=== PATIENT | female | born 1975 | race American Indian/Alaskan Native ===

== ENCOUNTER 2020-12-18 08:31 | Emergency (ER) | payer SELFPAY ==
[2020-12-18 08:43] VITALS: BP 178/122
[2020-12-18] MEDS ORDERED: DOCUSATE SODIUM 100 MG/10 ML ORAL LIQD PO ONE (09:09)
--- NOTE | 2020-12-18 09:09 | Emergency Department Report ---
ED ENT HPI - General Chief complaint: Earache Stated complaint: BUG IN LT EAR Time Seen by Provider: 12/18/20 08:51 Source: patient Mode of arrival: Ambulatory Limitations: No Limitations - History of Present Illness Initial comments: Patient is a 45-year-old -[place] female that comes to the emergency room after a bug flew in her left ear. She thinks it is a mtz. She can feel a fluttering. This started this morning. MD complaint: ear pain -: Sudden Location: L ear Severity: mild Quality: other (Fluttering) Improves with: none Worsens with: none - Related Data Allergies Allergy/AdvReac Type Severity Reaction Status Date / Time No Known Allergies Allergy Unverified 12/18/20 08:41 ED Dental HPI - General Chief complaint: Earache Stated complaint: BUG IN LT EAR Time Seen by Provider: 12/18/20 08:51 Source: patient Mode of arrival: Ambulatory Limitations: No Limitations - Related Data Allergies Allergy/AdvReac Type Severity Reaction Status Date / Time No Known Allergies Allergy Unverified 12/18/20 08:41 ED Review of Systems ROS: Stated complaint: BUG IN LT EAR Other details as noted in HPI Comment: All other systems reviewed and negative ED Past Medical Hx - Past Medical History Previous Medical History?: Yes Hx Hypertension: Yes Hx Asthma: Yes - Surgical History Past Surgical History?: Yes Additional Surgical History: tubal PG - Family History Family history: no significant - Social History Smoking Status: Never Smoker Substance Use Type: None ED Physical Exam - General Limitations: No Limitations General appearance: alert, in no apparent distress - Head Head exam: Present: atraumatic, normocephalic - Eye Eye exam: Present: normal appearance - ENT ENT exam: Present: mucous membranes moist - Expanded ENT Exam Expanded TM/Canal exam: Foreign Body: Left TM - Neck Neck exam: Present: normal inspection - Respiratory Respiratory exam: Present: normal lung sounds bilaterally. Absent: respiratory distress - Cardiovascular Cardiovascular Exam: Present: regular rate, normal rhythm. Absent: systolic murmur, diastolic murmur, rubs, gallop - GI/Abdominal GI/Abdominal exam: Present: soft, normal bowel sounds - Extremities Exam Extremities exam: Present: normal inspection - Back Exam Back exam: Present: normal inspection - Neurological Exam Neurological exam: Present: alert, oriented X3 - Psychiatric Psychiatric exam: Present: normal affect, normal mood - Skin Skin exam: Present: warm, dry, intact, normal color. Absent: rash ED Course Vital Signs 12/18/20 08:42 Temperature 99.2 F Pulse Rate 98 H Respiratory 20 Rate Blood Pressure 178/122 [Right] O2 Sat by Pulse 100 Oximetry ED Medical Decision Making - Medical Decision Making ear irrigated to remove fb. Colace used to smother the mtz for removal . On reexam fb is no longer present. pt ambulatory and in nad on d/c. Pt to dc home with dc plan of care. Pt verbalizes understanding of discharge plan of care Vital Signs 12/18/20 08:42 Temperature 99.2 F Pulse Rate 98 H Respiratory 20 Rate Blood Pressure 178/122 [Right] O2 Sat by Pulse 100 Oximetry - Differential Diagnosis fb left ear Critical care attestation.: If time is entered above; I have spent that time in minutes in the direct care of this critically ill patient, excluding procedure time. ED Disposition Clinical Impression: Foreign body in ear Disposition: DC-01 TO HOME OR SELFCARE Is pt being admited?: No Does the pt Need Aspirin: No Condition: Stable Instructions: Ear Foreign Body, [id number] Additional Instructions: EAR MAY BE SORE TODAY MOTRIN OR TYLENOL FOR PAIN FOLLOW UP WITH PCP NEXT WEEK REFERRAL BELOW Referrals: EUGENIA MOORE MD [Staff Physician] - 3-5 Days Time of Disposition: 09:38
[2020-12-18] MEDS ORDERED: levETIRAcetam 1000 MG/NS 0.75% 0 MG/0 ML BAG IV ONE (09:18)
== END 2020-12-18 10:59 | disposition home or self-care (01) ==
LOC: ED 08:31
DX: T16.2XXA Foreign body in left ear, initial encounter (principal); J45.909 Unspecified asthma, uncomplicated; I10 Essential (primary) hypertension; Z98.51 Tubal ligation status; X58.XXXA Exposure to other specified factors, initial encounter; Y93.89 Activity, other specified; Y92.89 Other specified places as the place of occurrence of the external cause; Y99.8 Other external cause status
CPT/HCPCS: 99283; J1953